=== PATIENT | male | born 1945 | race African-American/Black ===

== ENCOUNTER 2024-06-26 14:51 | Emergency (ER) | payer OTHER ==
[~2024-06-26] VITALS: Ht 175.3 cm; Wt 78.0 kg
[2024-06-26 14:54] VITALS: O2SAT 97
[2024-06-26 16:17] LABS: BASOPHILS % 0.5 % (0.0-2.0); EOSINOPHILS % 3.2 % (0.0-5.0); HEMATOCRIT. 38.2 % (42.0-52.0); HEMOGLOBIN. 12.8 g/dL (14.0-18.0); LYMPHOCYTES % 43.3 % (20.0-50.0); MEAN CORPUSCULAR HGB CONC 33.5 g/dL (31.0-37.0); MEAN CORPUSCULAR VOLUME 86.7 fL (80.0-94.0); MEAN PLATELET VOLUME 8.6 fl (7.4-10.4); MONOCYTES % 7.9 % (2.0-8.0); NEUTROPHILS % 45.1 % (40.0-76.0); PLATELET 171 x1000/uL (130-400); RED BLOOD CELL COUNT 4.41 mill/uL (4.7-6.1); RED CELL DISTRIBUTION WIDTH 15.3 % (11.6-14.6); WHITE BLOOD COUNT 6.7 x1000/uL (4.5-11.0)
[2024-06-26 16:23] LABS: CARBON DIOXIDE 32 mEq/L (21-32); CHLORIDE 106 mEq/L (98-107); POTASSIUM 3.9 mEq/L (3.5-5.1); SODIUM 146 mEq/L (136-145)
[2024-06-26 16:24] LABS: CALCIUM 8.7 mg/dL (8.7-10.4)
[2024-06-26 16:29] LABS: CREATININE 0.9 mg/dL (0.6-1.3); ETHANOL BLOOD < 10 mg/dL (<10); GLUCOSE 123 mg/dL (70-105); UREA NITROGEN BLOOD 18 mg/dL (9-23)
[2024-06-26 16:30] LABS: ALANINE AMINOTRANSFERASE 21 IU/L (10-49)
[2024-06-26 16:31] LABS: ALBUMIN 3.7 g/dL (3.2-4.8); ASPARTATE AMINOTRANSFERASE 20 IU/L (<34); BILIRUBIN TOTAL 0.7 mg/dL (0.1-1.0); PROTEIN TOTAL 6.5 g/dL (6.0-8.3); TROPONIN I HIGH SENSITIVITY 38 ng/L (3.0-53)
[2024-06-26 17:32] VITALS: TEMP 36.7
[2024-06-26 18:51] LABS: CLARITY URINE CLEAR (CLEAR); COLOR URINE YELLOW (YELLOW); GLUCOSE URINE NEGATIVE (NEGATIVE); KETONES URINE 1+ (NEGATIVE); LEUKOCYTE ESTERASE URINE 2+ (NEGATIVE); NITRITE URINE NEGATIVE (NEGATIVE); OCCULT BLOOD URINE TRACE (NEGATIVE); PH URINE 6.5 (4.5-8.0); PROTEIN URINE NEGATIVE (NEGATIVE)
[2024-06-26 19:17] LABS: BACTERIA URINE 1+; RBC URINE 0-2 /hpf (0-2); SQUAMOUS EPITHELIAL CELL URINE 1+ /lpf (RARE/1+)
[2024-06-26] MEDS: HALOPERIDOL LACTATE 5MG/ML VIAL IM ONE (20:42)
[2024-06-26] MEDS ORDERED: HALOPERIDOL LACTATE 5MG/ML VIAL IM ONE (20:45)
[2024-06-26 21:49] VITALS: BP 160/72; PULSE 78; RESP 15; O2SAT 97
== END 2024-06-27 01:20 | disposition home or self-care (01) ==
LOC: ER 14:51
DX: R45.1 Restlessness and agitation (principal); F03.911 Unspecified dementia, unspecified severity, with agitation; I11.0 Hypertensive heart disease with heart failure; I50.9 Heart failure, unspecified; Z86.73 Personal history of transient ischemic attack (TIA), and cerebral infarction without residual deficits; Z87.440 Personal history of urinary (tract) infections
CPT/HCPCS: 80053; 81003; 80320; 84439; 84443; 85025; 84484; 36415; 71045; 70450; 93005; 96372; 99285; J1630; G0480